=== PATIENT | female | born 1955 | race American Indian/Alaskan Native ===

== ENCOUNTER 2018-05-17 17:08 | Inpatient (IN) | payer MEDICARE, OTHER ==
[2018-05-17 18:34] LABS: Basophils % (Auto) 0.4 % (0.0-1.8); Eosinophils % (Auto) 0.5 % (0.0-4.3); Hematocrit 35.2 % (30.3-42.9); Hemoglobin 10.9 gm/dl (10.1-14.3); Lymphocytes # (Auto) 1.3 K/mm3 (1.2-5.4); Mean Corpuscular HGB Conc 31 % (30-34); Mean Corpuscular Volume 77 fl (79-97); Monocytes # (Auto) 0.6 K/mm3 (0.0-0.8); Monocytes % (Auto) 10.7 % (0.0-7.3); Platelet Count 208 K/mm3 (140-440); Red Blood Count 4.59 M/mm3 (3.65-5.03)
[2018-05-17 18:41] LABS: Red Cell Distribution Width 20.2 % (13.2-15.2)
[2018-05-17 18:44] LABS: INR 4.14 (0.87-1.13); Partial Thromboplastin Time 44.8 Sec. (24.2-36.6)
[2018-05-17 18:49] LABS: Calcium 9.2 mg/dL (8.4-10.2)
[2018-05-17 18:51] LABS: Albumin 3.8 g/dL (3.9-5); Bilirubin,Direct 0.5 mg/dL (0-0.2)
[2018-05-17] MEDS ORDERED: LASIX IV ONE ×2 (18:53→20:21)
--- NOTE | 2018-05-17 19:06 | Emergency Department Report ---
ED General Adult HPI - General Chief complaint: Chest Pain Stated complaint: CHEST PAIN Time Seen by Provider: 05/17/18 17:44 Source: patient, EMS Mode of arrival: Stretcher Limitations: No Limitations - History of Present Illness Initial comments: Patient presents to the emergency department a chief complaint of increased shortness of breath over the last 2 days. The patient states she normally wears oxygen daily but left her oxygen tank at home and the [place] area. Patient also has congestive heart failure 2 slices daily. Patient denies any chest pain, abdominal pain, headache. -: Gradual Severity scale (0 -10): 0 Consistency: constant Improves with: none Worsens with: none Associated Symptoms: denies other symptoms Treatments Prior to Arrival: none - Related Data Home Medications Medication Instructions Recorded Confirmed Last Taken Allopurinol 300 mg PO AC 05/17/18 05/17/18 Unknown Aripiprazole 20 mg PO DAILY 05/17/18 05/17/18 Unknown AtorvaSTATin 80 mg PO DAILY 05/17/18 05/17/18 Unknown Carvedilol 25 mg PO BID 05/17/18 05/17/18 Unknown Digoxin 0.25 mg PO DAILY 05/17/18 05/17/18 Unknown Doxepin 10 mg PO DAILY 05/17/18 05/17/18 Unknown Furosemide 40 mg PO DAILY 05/17/18 05/17/18 Unknown Omeprazole 20 mg PO AC 05/17/18 05/17/18 Unknown Sacubitril/Valsartan 24 mg PO BID 05/17/18 05/17/18 Unknown Sertraline 100 mg PO DAILY 05/17/18 05/17/18 Unknown Warfarin 5 mg PO DAILY 05/17/18 05/17/18 Unknown dilTIAZem 240 mg PO DAILY 05/17/18 05/17/18 Unknown Allergies Allergy/AdvReac Type Severity Reaction Status Date / Time Sulfa (Sulfonamide Allergy Unknown Verified 05/17/18 17:32 Antibiotics) ED Review of Systems ROS: Stated complaint: CHEST PAIN Other details as noted in HPI Comment: All other systems reviewed and negative Constitutional: denies: chills, fever Eyes: denies: eye pain, eye discharge, vision change ENT: denies: ear pain, throat pain Respiratory: shortness of breath. denies: cough, wheezing Cardiovascular: denies: chest pain, palpitations Endocrine: no symptoms reported Gastrointestinal: denies: abdominal pain, nausea, diarrhea Genitourinary: denies: urgency, dysuria, discharge Musculoskeletal: denies: back pain, joint swelling, arthralgia Skin: denies: rash, lesions Neurological: denies: headache, weakness, paresthesias Psychiatric: denies: anxiety, depression Hematological/Lymphatic: denies: easy bleeding, easy bruising ED Past Medical Hx - Past Medical History Previous Medical History?: Yes Hx Hypertension: Yes Hx Heart Attack/AMI: Yes Hx Congestive Heart Failure: Yes Additional medical history: A Fib - Surgical History Past Surgical History?: Yes Additional Surgical History: Cardiac stents - Social History Smoking Status: Never Smoker Substance Use Type: None - Medications Home Medications: Home Medications Medication Instructions Recorded Confirmed Last Taken Type Allopurinol 300 mg PO AC 05/17/18 05/17/18 Unknown History Aripiprazole 20 mg PO DAILY 05/17/18 05/17/18 Unknown History AtorvaSTATin 80 mg PO DAILY 05/17/18 05/17/18 Unknown History Carvedilol 25 mg PO BID 05/17/18 05/17/18 Unknown History Digoxin 0.25 mg PO DAILY 05/17/18 05/17/18 Unknown History Doxepin 10 mg PO DAILY 05/17/18 05/17/18 Unknown History Furosemide 40 mg PO DAILY 05/17/18 05/17/18 Unknown History Omeprazole 20 mg PO AC 05/17/18 05/17/18 Unknown History Sacubitril/Valsartan 24 mg PO BID 05/17/18 05/17/18 Unknown History Sertraline 100 mg PO DAILY 05/17/18 05/17/18 Unknown History Warfarin 5 mg PO DAILY 05/17/18 05/17/18 Unknown History dilTIAZem 240 mg PO DAILY 05/17/18 05/17/18 Unknown History ED Physical Exam - General Limitations: No Limitations General appearance: alert, in no apparent distress - Head Head exam: Present: atraumatic, normocephalic - Eye Eye exam: Present: normal appearance, PERRL, EOMI - ENT ENT exam: Present: mucous membranes moist - Neck Neck exam: Present: normal inspection - Respiratory Respiratory exam: Present: normal lung sounds bilaterally, rales. Absent: respiratory distress, wheezes - Cardiovascular Cardiovascular Exam: Present: regular rate, normal rhythm. Absent: systolic murmur, diastolic murmur, rubs, gallop - GI/Abdominal GI/Abdominal exam: Present: soft, normal bowel sounds. Absent: distended, tenderness - Extremities Exam Extremities exam: Present: normal inspection, pedal edema, other (bilateral pitting edema) - Back Exam Back exam: Present: normal inspection - Neurological Exam Neurological exam: Present: alert, oriented X3, CN II-XII intact. Absent: motor sensory deficit - Psychiatric Psychiatric exam: Present: normal affect, normal mood - Skin Skin exam: Present: warm, dry, intact, normal color. Absent: rash ED Course Vital Signs 05/17/18 17:29 Temperature 97.2 F L Pulse Rate 94 H Respiratory 24 Rate Blood Pressure 171/106 O2 Sat by Pulse 100 Oximetry ED Medical Decision Making - Lab Data Result diagrams: 05/17/18 17:50 05/17/18 17:50 Lab Results 05/17/18 05/17/18 05/17/18 Range/Units 17:50 17:50 17:50 WBC 5.8 (4.5-11.0) K/mm3 RBC 4.59 (3.65-5.03) M/mm3 Hgb 10.9 (10.1-14.3) gm/dl Hct 35.2 (30.3-42.9) % MCV 77 L (79-97) fl MCH 24 L (28-32) pg MCHC 31 (30-34) % RDW 20.2 H (13.2-15.2) % Plt Count 208 (140-440) K/mm3 Lymph % (Auto) 23.0 (13.4-35.0) % [place] % (Auto) 10.7 H (0.0-7.3) % Eos % (Auto) 0.5 (0.0-4.3) % Baso % (Auto) 0.4 (0.0-1.8) % Lymph # 1.3 (1.2-5.4) K/mm3 [place] # 0.6 (0.0-0.8) K/mm3 Eos # 0.0 (0.0-0.4) K/mm3 Baso # 0.0 (0.0-0.1) K/mm3 Seg Neutrophils % 65.4 (40.0-70.0) % Seg Neutrophils # 3.8 (1.8-7.7) K/mm3 PT 43.0 H (12.2-14.9) Sec. INR 4.14 H (0.87-1.13) APTT 44.8 H (24.2-36.6) Sec. Sodium 140 (137-145) mmol/L Potassium 4.8 (3.6-5.0) mmol/L Chloride 98.2 (98-107) mmol/L Carbon Dioxide 28 (22-30) mmol/L Anion Gap 19 mmol/L BUN 32 H (7-17) mg/dL Creatinine 1.7 H (0.7-1.2) mg/dL Estimated GFR 37 ml/min BUN/Creatinine Ratio 19 % Glucose 118 H (65-100) mg/dL Calcium 9.2 (8.4-10.2) mg/dL Phosphorus (2.5-4.5) mg/dL Magnesium (1.7-2.3) mg/dL Total Bilirubin (0.1-1.2) mg/dL Direct Bilirubin (0-0.2) mg/dL Indirect Bilirubin mg/dL AST (5-40) units/L ALT (7-56) units/L Alkaline Phosphatase (35-129) units/L Troponin T 0.026 (0.00-0.029) ng/mL NT-Pro-B Natriuret Pep (0-900) pg/mL Total Protein (6.3-8.2) g/dL Albumin (3.9-5) g/dL Albumin/Globulin Ratio % // Range/Units 17:52 WBC (4.5-11.0) K/mm3 RBC (3.65-5.03) M/mm3 Hgb (10.1-14.3) gm/dl Hct (30.3-42.9) % MCV (79-97) fl MCH (28-32) pg MCHC (30-34) % RDW (13.2-15.2) % Plt Count (140-440) K/mm3 Lymph % (Auto) (13.4-35.0) % [place] % (Auto) (0.0-7.3) % Eos % (Auto) (0.0-4.3) % Baso % (Auto) (0.0-1.8) % Lymph # (1.2-5.4) K/mm3 [place] # (0.0-0.8) K/mm3 Eos # (0.0-0.4) K/mm3 Baso # (0.0-0.1) K/mm3 Seg Neutrophils % (40.0-70.0) % Seg Neutrophils # (1.8-7.7) K/mm3 PT (12.2-14.9) Sec. INR (0.87-1.13) APTT (24.2-36.6) Sec. Sodium (137-145) mmol/L Potassium (3.6-5.0) mmol/L Chloride (98-107) mmol/L Carbon Dioxide (22-30) mmol/L Anion Gap mmol/L BUN (7-17) mg/dL Creatinine (0.7-1.2) mg/dL Estimated GFR ml/min BUN/Creatinine Ratio % Glucose (65-100) mg/dL Calcium (8.4-10.2) mg/dL Phosphorus 4.10 (2.5-4.5) mg/dL Magnesium 1.80 (1.7-2.3) mg/dL Total Bilirubin 1.00 (0.1-1.2) mg/dL Direct Bilirubin 0.5 H (0-0.2) mg/dL Indirect Bilirubin 0.5 mg/dL AST 21 (5-40) units/L ALT 20 (7-56) units/L Alkaline Phosphatase 194 H (35-129) units/L Troponin T (0.00-0.029) ng/mL NT-Pro-B Natriuret Pep 25859 H (0-900) pg/mL Total Protein 7.0 (6.3-8.2) g/dL Albumin 3.8 L (3.9-5) g/dL Albumin/Globulin Ratio 1.2 % - EKG Data -: EKG Interpreted by Me Rate: tachycardia (patient has a regular hyperemesis minute and the rhythm is atrial fib) - Radiology Data Radiology results: report reviewed - Medical Decision Making Discussed results with the patient Patient received IV Lasix Critical Care Time: Yes Critical care time in (mins) excluding proc time.: 45 Critical care attestation.: If time is entered above; I have spent that time in minutes in the direct care of this critically ill patient, excluding procedure time. ED Disposition Clinical Impression: CHF (congestive heart failure) Disposition: DC-09 OP ADMIT IP TO THIS HOSP Is pt being admited?: No Does the pt Need Aspirin: No Condition: Fair Referrals: PRIMARY CARE, [Primary Care Provider] - 3-5 Days
--- NOTE | 2018-05-17 19:42 | History and Physical Report ---
History of Present Illness Chief complaint: I cant breathe History of present illness: 62 YO Female with MO, Chronic Respiratory Failure on Home oxygen, Atrial Fib on Therapeutic Anticoagulation, HTN, RI, CHF, CAD S/P Stent placement presents to ED for evaluation. Pt states that she has experienced shortness of breath over the past 2 days, with progressively worsening symptoms over the same time frame. Pt acknowledges lower extremity edema, decreased exercise tolerance, Orthopnea/PND, shortness of breath, dypsnea on exertion, dypsnea at rest. EMS notified, and upon arrival the patient was found to be in distress. Pt transported to [facility] for further care and evaluation. Pt seen and evaluated in ED and found to have CHF Decompensation, as well as Acute on Chronic Respiratory Failure, and Supratherapeutic INR. Pt admitted to telemetry and initiated on CHF protocol. Cardiology consulted in ED. Pt denies, fever, chills, CP, Palpitations, NVD, Trauma, BRBPR, Unintentional weight loss, night sweats. Past History Past Medical History: acute RI, atrial fib, CAD, heart failure, hypertension, other (gout) Past Surgical History: Other (Cardiac Stent placement) Social history: single Family history: hypertension Medications and Allergies Allergies Allergy/AdvReac Type Severity Reaction Status Date / Time Sulfa (Sulfonamide Allergy Unknown Verified 05/17/18 17:32 Antibiotics) Home Medications Medication Instructions Recorded Confirmed Last Taken Type Allopurinol 300 mg PO AC 05/17/18 05/17/18 Unknown History Aripiprazole 20 mg PO DAILY 05/17/18 05/17/18 Unknown History AtorvaSTATin 80 mg PO DAILY 05/17/18 05/17/18 Unknown History Carvedilol 25 mg PO BID 05/17/18 05/17/18 Unknown History Digoxin 0.25 mg PO DAILY 05/17/18 05/17/18 Unknown History Doxepin 10 mg PO DAILY 05/17/18 05/17/18 Unknown History Furosemide 40 mg PO DAILY 05/17/18 05/17/18 Unknown History Omeprazole 20 mg PO AC 05/17/18 05/17/18 Unknown History Sacubitril/Valsartan 24 mg PO BID 05/17/18 05/17/18 Unknown History Sertraline 100 mg PO DAILY 05/17/18 05/17/18 Unknown History Warfarin 5 mg PO DAILY 05/17/18 05/17/18 Unknown History dilTIAZem 240 mg PO DAILY 05/17/18 05/17/18 Unknown History Review of Systems Constitutional: no weight loss, no weight gain, no fever, no chills Ears, nose, mouth and throat: no ear pain, no ear discharge, no tinnitis, no decreased hearing, no nose pain Breasts: no change in shape, no swelling, no mass Cardiovascular: orthopnea, shortness of breath, dyspnea on exertion, paroxysmal nocturnal dyspnea, high blood pressure, leg edema, decreased exercise tolerance, no chest pain, no palpitations, no rapid/irregular heart beat Respiratory: no cough, no cough with sputum, no excessive sputum, no hemoptysis Gastrointestinal: no abdominal pain, no nausea, no vomiting, no diarrhea, no constipation Genitourinary Female: no pelvic pain, no flank pain, no menorrhagia, no dysuria, no urinary frequency, no urgency Rectal: no pain, no incontinence, no bleeding Musculoskeletal: no neck stiffness, no neck pain, no shooting arm pain, no arm numbness/tingling, no low back pain Integumentary: no rash, no pruritis, no redness, no sores, no wounds Psychiatric: no anxiety, no memory loss, no change in sleep habits, no sleep disturbances, no insomnia, no hypersomnia Endocrine: no cold intolerance, no excessive thirst, no polydipsia, no polyuria Hematologic/Lymphatic: no easy bruising, no easy bleeding, no lymphadenopathy, no lymphedema Allergic/Immunologic: no urticaria, no allergic rhinitis, no wheezing, no persistent infections, no angioedema Exam - Constitutional Vitals: Temp Pulse Resp BP Pulse Ox 97.2 F L 94 H 24 171/106 100 05/17/18 17:29 05/17/18 17:29 05/17/18 17:29 05/17/18 17:29 05/17/18 17:29 General appearance: Present: mild distress, obese - EENT Eyes: Present: PERRL ENT: hearing intact, clear oral mucosa - Neck Neck: Present: supple, normal ROM - Respiratory Respiratory effort: normal Respiratory: bilateral: diminished, rhonchi - Cardiovascular Heart Sounds: Present: S1 & S2. Absent: rub, click - Extremities Extremities: pulses symmetrical Extremity abnormal: edema Peripheral Pulses: within normal limits - Abdominal General gastrointestinal: Present: soft, non-tender, non-distended, normal bowel sounds Female genitourinary: Present: normal - Integumentary Integumentary: Present: clear, warm, dry - Musculoskeletal Musculoskeletal: generalized weakness - Psychiatric Psychiatric: appropriate mood/affect, intact judgment & insight - Neurologic Neurologic: CNII-XII intact, moves all extremities Results - Labs CBC & Chem 7: 05/17/18 17:50 05/17/18 17:50 Labs: Abnormal lab results 05/17/18 05/17/18 05/17/18 Range/Units 17:50 17:50 17:50 MCV 77 L (79-97) fl MCH 24 L (28-32) pg RDW 20.2 H (13.2-15.2) % [place] % (Auto) 10.7 H (0.0-7.3) % PT 43.0 H (12.2-14.9) Sec. INR 4.14 H (0.87-1.13) APTT 44.8 H (24.2-36.6) Sec. BUN 32 H (7-17) mg/dL Creatinine 1.7 H (0.7-1.2) mg/dL Glucose 118 H (65-100) mg/dL Direct Bilirubin (0-0.2) mg/dL Alkaline Phosphatase (35-129) units/L NT-Pro-B Natriuret Pep (0-900) pg/mL Albumin (3.9-5) g/dL 05/17/18 Range/Units 17:52 MCV (79-97) fl MCH (28-32) pg RDW (13.2-15.2) % [place] % (Auto) (0.0-7.3) % PT (12.2-14.9) Sec. INR (0.87-1.13) APTT (24.2-36.6) Sec. BUN (7-17) mg/dL Creatinine (0.7-1.2) mg/dL Glucose (65-100) mg/dL Direct Bilirubin 0.5 H (0-0.2) mg/dL Alkaline Phosphatase 194 H (35-129) units/L NT-Pro-B Natriuret Pep 77013 H (0-900) pg/mL Albumin 3.8 L (3.9-5) g/dL Assessment and Plan - Patient Problems (1) CHF (congestive heart failure) Current Visit: Yes Status: Acute Qualifiers: Heart failure type: systolic Heart failure chronicity: acute Qualified Code(s): I50.21 - Acute systolic (congestive) heart failure Plan to address problem: Admit to telemetry, Cardiology consulted in ED, Echo, strict I/o daily weight, monitor uop q shift, thyroid panel, BNP, chest x ray, bmp, (2) Respiratory failure Current Visit: Yes Status: Acute Qualifiers: Chronicity: acute on chronic Respiratory failure complication: hypoxia Qualified Code(s): J96.21 - Acute and chronic respiratory failure with hypoxia Plan to address problem: supplemental oxygen, nebulizer therpay, NIPPV as clinically indicated, pulse oximetry, chest x ray, (3) Obesity hypoventilation syndrome Current Visit: Yes Status: Acute Plan to address problem: supplemental oxygen, NIPPV as clinically indicated, pulse oximetry, pulmonary toilet, early ambulation, OOB to chair BID, balanced diet, increased physical activity at discharge. (4) ARF (acute renal failure) with tubular necrosis Current Visit: Yes Status: Acute Plan to address problem: monitor uop q shift, repeat bmp to monitor serum creatnine. (5) Supratherapeutic INR Current Visit: Yes Status: Acute Plan to address problem: Hold coumadin, repeat INR in AM. (6) DVT prophylaxis Current Visit: Yes Status: Acute Plan to address problem: SCD to BLE while in bed.
[2018-05-17] MEDS ORDERED: TYLENOL PO PRN (19:44)
[2018-05-17] MEDS ORDERED: ZOFRAN IV PRN (19:44)
[2018-05-17] MEDS ORDERED: PROVENTIL IH PRN (19:44)
[2018-05-17] MEDS ORDERED: SODIUM CHLORIDE FLUSH SYRINGE 10 ML IV PRN (19:44)
[2018-05-17] MEDS ORDERED: HYDROMET PO PRN (21:08)
--- NOTE | 2018-05-17 21:41 | XRay Report ---
PROCEDURE: PORTABLE CHEST TECHNIQUE: A portable AP chest radiograph was obtained at 05/18/2018 2:03 PULMONOLOGY TECHNICIAN. CPT 11047 HISTORY: Shortness of breath COMPARISONS: None. FINDINGS: Heart: The heart is enlarged. Mediastinum/Vessels: Normal. Lungs/Pleural space: Lungs are expanded. There are no acute infiltrates, effusions or pneumothoraces .. Bony thorax: No acute osseous abnormality. Life support devices: None. IMPRESSION: Cardiomegaly. The lungs are clear.. This document is electronically signed by Adithya Evans MD., May 17 2018 09:38:44 PM ET
[2018-05-17] MEDS ORDERED: NON-FORMULARY (Carvedilol 25 MG) PO SCH (22:00)
[2018-05-17] MEDS ORDERED: VALSARTAN PO SCH (22:00)
[2018-05-17] MEDS ORDERED: SACUBITRIL PO SCH (22:00)
[2018-05-17 22:10] LABS: Free T4 (Free Thyroxine) 1.59 ng/dL (0.76-1.46)
[2018-05-17] MEDS: ENTRESTO 24 - 26 MG PO SCH (22:50)
[2018-05-17] MEDS: SODIUM CHLORIDE FLUSH SYRINGE 10 ML IV SCH (22:50)
[2018-05-17] MEDS: COREG PO SCH (22:51)
[2018-05-18] MEDS ORDERED: NON-FORMULARY (Omeprazole 20 MG) PO SCH (07:30)
[2018-05-18] MEDS ORDERED: NON-FORMULARY (Allopurinol 300 MG) PO SCH (07:30)
[2018-05-18 07:47] LABS: INR 4.24 (0.87-1.13)
[2018-05-18] MEDS: PROTONIX PO SCH ×3 (08:24→18:14)
[2018-05-18] MEDS: ZYLOPRIM PO SCH ×3 (08:25→18:14)
--- NOTE | 2018-05-18 09:02 | Progress Note ---
Assessment and Plan Assessment and plan: --Acute hypoxic respiratory failure ; requiring BiPAP secondary acute congestive heart failure Anti-failure medications, oxygen titrated to O2 sats more than 90% Input and output monitoring, follow cardiology evaluation and recommendations --Acute systolic congestive heart failure; unknown ejection fraction ECHO for LVEF, Continue anti-failure medications --Acute kidney injury secondary to ATN; Creatinine levels trending down, monitor renal function, avoid nephrotoxins --History of A. fib; rate controlled today; Continue Cardizem and digoxin and beta blockers, closely monitor --Coagulopathy/supratherapeutic INR; Patient is on Coumadin for A. fib, hold Coumadin, closely monitor INR No external evidence of bleeding, pharmacy to follow --Dyslipidemia stable on lipid lowering medications --History of gout; continue allopurinol and supportive care --DVT prophylaxis; patient is already on Coumadin and supratherapeutic INR --Full CODE STATUS Closely monitor the patient and adjust management as needed Follow-up cardiology evaluation and recommendations Plan of care discussed with the patient and her nurse History Interval history: Patient seen and examined medical records reviewed patient was admitted with worsening shortness of breath Feels slightly better today Reports that she follows with the [facility], has congestive heart failure with ejection fraction of 30-35% [facility] physician recommended ICD placement Patient is alert awake oriented 3 Not in acute distress vital signs reviewed, Hospitalist Physical - Constitutional Vitals: Temp Pulse Resp BP Pulse Ox 97.7 F 73 18 147/83 95 05/18/18 07:45 05/18/18 04:02 05/18/18 07:45 05/18/18 07:45 05/18/18 04:02 General appearance: Present: no acute distress, obese (morbidly) - EENT Eyes: Present: PERRL, EOM intact - Neck Neck: Present: supple, normal ROM - Respiratory Respiratory effort: normal Respiratory: bilateral: diminished, rales, negative: rhonchi, wheezing - Cardiovascular Rhythm: regular Heart Sounds: Present: S1 & S2 - Extremities Extremities: no ischemia, No edema - Abdominal General gastrointestinal: soft, non-tender, non-distended, normal bowel sounds - Integumentary Integumentary: Present: clear, warm - Psychiatric Psychiatric: appropriate mood/affect, cooperative - Neurologic Neurologic: moves all extremities Results - Labs CBC & Chem 7: 05/17/18 17:50 05/18/18 06:30 Labs: Laboratory Last Values WBC 5.8 K/mm3 (4.5-11.0) 05/17/18 17:50 RBC 4.59 M/mm3 (3.65-5.03) 05/17/18 17:50 Hgb 10.9 gm/dl (10.1-14.3) 05/17/18 17:50 Hct 35.2 % (30.3-42.9) 05/17/18 17:50 MCV 77 fl (79-97) L 05/17/18 17:50 MCH 24 pg (28-32) L 05/17/18 17:50 MCHC 31 % (30-34) 05/17/18 17:50 RDW 20.2 % (13.2-15.2) H 05/17/18 17:50 Plt Count 208 K/mm3 (140-440) 05/17/18 17:50 Lymph % (Auto) 23.0 % (13.4-35.0) 05/17/18 17:50 [place] % (Auto) 10.7 % (0.0-7.3) H 05/17/18 17:50 Eos % (Auto) 0.5 % (0.0-4.3) 05/17/18 17:50 Baso % (Auto) 0.4 % (0.0-1.8) 05/17/18 17:50 Lymph # 1.3 K/mm3 (1.2-5.4) 05/17/18 17:50 [place] # 0.6 K/mm3 (0.0-0.8) 05/17/18 17:50 Eos # 0.0 K/mm3 (0.0-0.4) 05/17/18 17:50 Baso # 0.0 K/mm3 (0.0-0.1) 05/17/18 17:50 Seg Neutrophils % 65.4 % (40.0-70.0) 05/17/18 17:50 Seg Neutrophils # 3.8 K/mm3 (1.8-7.7) 05/17/18 17:50 PT 43.8 Sec. (12.2-14.9) H 05/18/18 06:30 INR 4.24 (0.87-1.13) H 05/18/18 06:30 APTT 44.8 Sec. (24.2-36.6) H 05/17/18 17:50 Sodium 140 mmol/L (137-145) 05/18/18 06:30 Potassium 4.7 mmol/L (3.6-5.0) 05/18/18 06:30 Chloride 97.8 mmol/L (98-107) L 05/18/18 06:30 Carbon Dioxide 27 mmol/L (22-30) 05/18/18 06:30 Anion Gap 20 mmol/L 05/18/18 06:30 BUN 32 mg/dL (7-17) H 05/18/18 06:30 Creatinine 1.5 mg/dL (0.7-1.2) H 05/18/18 06:30 Estimated GFR 43 ml/min 05/18/18 06:30 BUN/Creatinine Ratio 21 % 05/18/18 06:30 Glucose 113 mg/dL (65-100) H 05/18/18 06:30 Calcium 9.0 mg/dL (8.4-10.2) 05/18/18 06:30 Phosphorus 4.10 mg/dL (2.5-4.5) 05/17/18 17:52 Magnesium 1.80 mg/dL (1.7-2.3) 05/17/18 17:52 Total Bilirubin 1.00 mg/dL (0.1-1.2) 05/17/18 17:52 Direct Bilirubin 0.5 mg/dL (0-0.2) H 05/17/18 17:52 Indirect Bilirubin 0.5 mg/dL 05/17/18 17:52 AST 21 units/L (5-40) 05/17/18 17:52 ALT 20 units/L (7-56) 05/17/18 17:52 Alkaline Phosphatase 194 units/L (35-129) H 05/17/18 17:52 Troponin T 0.028 ng/mL (0.00-0.029) 05/17/18 23:03 NT-Pro-B Natriuret Pep 25731 pg/mL (0-900) H 05/17/18 17:52 Total Protein 7.0 g/dL (6.3-8.2) 05/17/18 17:52 Albumin 3.8 g/dL (3.9-5) L 05/17/18 17:52 Albumin/Globulin Ratio 1.2 % 05/17/18 17:52 TSH 1.820 mlU/mL (0.270-4.200) 05/17/18 17:52 Free T4 1.59 ng/dL (0.76-1.46) H 05/17/18 17:52
[2018-05-18] MEDS ORDERED: DIGOXIN 0.25 MG PO SCH (10:00)
[2018-05-18] MEDS ORDERED: DILTIAZEM 240 MG PO SCH (10:00)
[2018-05-18] MEDS ORDERED: NON-FORMULARY (Atorvastatin 80 MG) PO SCH (10:00)
[2018-05-18] MEDS ORDERED: WARFARIN 5 MG PO SCH (10:00)
[2018-05-18] MEDS ORDERED: DOXEPIN 10 MG PO SCH (10:00)
[2018-05-18] MEDS ORDERED: ARIPIPRAZOLE 20 MG PO SCH (10:00)
[2018-05-18] MEDS ORDERED: NON-FORMULARY (Sertraline 100 MG) PO SCH (10:00)
--- NOTE | 2018-05-18 11:18 | Consultation ---
History of Present Illness Consult date: 05/18/18 Consult reason: congestive heart failure History of present illness: Patient is a 62 year old woman whom is in the area visiting family. She gives a history of ischemic cardiomyopathy and coronary artery disease. She has permanent atrial fibrillation and takes warfarin for oral anticoagulation which is followed by the [facility] in [facility]. She also has chronic respiratory failure on home oxygen therapy. Patient presented with complaints of shortness of breath. She reports she ran out of oxygen in her O2 tank. In addition, patient reports she has gained 10- 12lbs over the last few weeks. Noted with lower extremity edema and shortness of breath with minimal exertion. Patient admits she takes lasix daily but not twice a day as prescribed. Initial labs shows a supra therapeutic INR of 4.14 on presentation. An ECG is atrial fibrillation, rate 106. A cardiac consultation was requested for CHF exacerbation. Past History Past Medical History: acute [place], atrial fib, CAD, heart failure, hypertension, ot her (gout) Social history: single Family history: hypertension Medications and Allergies Allergies Allergy/AdvReac Type Severity Reaction Status Date / Time Sulfa (Sulfonamide Allergy Unknown Verified 05/17/18 17:32 Antibiotics) Home Medications Medication Instructions Recorded Confirmed Last Taken Type Allopurinol 300 mg PO AC 05/17/18 05/17/18 Unknown History Aripiprazole 20 mg PO DAILY 05/17/18 05/17/18 Unknown History AtorvaSTATin 80 mg PO DAILY 05/17/18 05/17/18 Unknown History Carvedilol 25 mg PO BID 05/17/18 05/17/18 Unknown History Digoxin 0.25 mg PO DAILY 05/17/18 05/17/18 Unknown History Doxepin 10 mg PO DAILY 05/17/18 05/17/18 Unknown History Furosemide 40 mg PO DAILY 05/17/18 05/17/18 Unknown History Omeprazole 20 mg PO AC 05/17/18 05/17/18 Unknown History Sacubitril/Valsartan 24 mg PO BID 05/17/18 05/17/18 Unknown History Sertraline 100 mg PO DAILY 05/17/18 05/17/18 Unknown History Warfarin 5 mg PO DAILY 05/17/18 05/17/18 Unknown History dilTIAZem 240 mg PO DAILY 05/17/18 05/17/18 Unknown History Active Meds: Active Medications Acetaminophen (Tylenol) 650 mg PO Q4H PRN PRN Reason: Pain MILD(1-3)/Fever >100.5/PERSAUD Albuterol (Proventil) 2.5 mg IH Q4HRT PRN PRN Reason: Shortness Of Breath Allopurinol (Zyloprim) 300 mg PO AC [facility] Aripiprazole (Abilify) 20 mg PO QDAY [facility] Atorvastatin Calcium (Lipitor) 80 mg PO QDAY [facility] Carvedilol (Coreg) 25 mg PO Q12HR [facility] Last Admin: 05/17/18 22:51 Dose: 25 mg Documented by: Digoxin (Lanoxin) 0.25 mg PO QDAY [facility] Diltiazem HCl (Cardizem Cd) 240 mg PO QDAY [facility] Doxepin HCl (Sinequan) 10 mg PO QDAY [facility] Furosemide (Lasix) 40 mg IV BID@0600,1800 [facility] Hydrocodone Bit/Homatropine Methylb (Hydromet) 10 ml PO Q6H PRN PRN Reason: Cough Ondansetron HCl (Zofran) 4 mg IV Q8H PRN PRN Reason: Nausea And Vomiting Pantoprazole Sodium (Protonix) 20 mg PO AC [facility] Sertraline HCl (Zoloft) 100 mg PO QDAY [facility] Sodium Chloride (Sodium Chloride Flush Syringe 10 Ml) 10 ml IV BID [facility] Last Admin: 05/17/18 22:50 Dose: 10 ml Documented by: Sodium Chloride (Sodium Chloride Flush Syringe 10 Ml) 10 ml IV PRN PRN PRN Reason: LINE FLUSH Physical Examination Vital Signs Resp 14 05/17/18 17:20 General appearance: no acute distress, obese HEENT: Positive: PERRL Cardiac: Positive: irregularly irregular Lungs: Positive: Decreased Breath Sounds Neuro: Positive: Grossly Intact Extremities: Present: +1 Edema Results 05/17/18 17:50 05/18/18 06:30 Cardiac Enzymes 05/17/18 Range/Units 17:52 AST 21 (5-40) units/L Coagulation 05/17/18 05/18/18 Range/Units 17:50 06:30 PT 43.0 H 43.8 H (12.2-14.9) Sec. INR 4.14 H 4.24 H (0.87-1.13) APTT 44.8 H (24.2-36.6) Sec. CBC 05/17/18 Range/Units 17:50 WBC 5.8 (4.5-11.0) K/mm3 RBC 4.59 (3.65-5.03) M/mm3 Hgb 10.9 (10.1-14.3) gm/dl Hct 35.2 (30.3-42.9) % Plt Count 208 (140-440) K/mm3 Lymph # 1.3 (1.2-5.4) K/mm3 [place] # 0.6 (0.0-0.8) K/mm3 Eos # 0.0 (0.0-0.4) K/mm3 Baso # 0.0 (0.0-0.1) K/mm3 Comprehensive Metabolic Panel 05/17/18 05/17/18 05/18/18 Range/Units 17:50 17:52 06:30 Sodium 140 140 (137-145) mmol/L Potassium 4.8 4.7 (3.6-5.0) mmol/L Chloride 98.2 97.8 L (98-107) mmol/L Carbon Dioxide 28 27 (22-30) mmol/L BUN 32 H 32 H (7-17) mg/dL Creatinine 1.7 H 1.5 H (0.7-1.2) mg/dL Glucose 118 H 113 H (65-100) mg/dL Calcium 9.2 9.0 (8.4-10.2) mg/dL Direct Bilirubin 0.5 H (0-0.2) mg/dL Indirect Bilirubin 0.5 mg/dL AST 21 (5-40) units/L ALT 20 (7-56) units/L Alkaline Phosphatase 194 H (35-129) units/L Total Protein 7.0 (6.3-8.2) g/dL Albumin 3.8 L (3.9-5) g/dL Assessment and Plan Acute systolic heart failure Chronic respiratory failure on home oxygen Ischemic cardiomyopathy Hx of CAD Hx of permanent Afib on warfarin as an outpatient, currently on hold due to supra therapeutic INR
[2018-05-18] MEDS: ABILIFY PO SCH (12:46)
[2018-05-18] MEDS: CARDIZEM CD PO SCH (12:47)
[2018-05-18] MEDS: SINEquan PO SCH (12:47)
[2018-05-18] MEDS: LANOXIN PO SCH (12:47)
[2018-05-18] MEDS: COREG PO SCH ×2 (12:47→23:01)
[2018-05-18] MEDS: ENTRESTO 24 - 26 MG PO SCH ×2 (12:48→22:58)
[2018-05-18] MEDS: ZOLOFT PO SCH (12:49)
[2018-05-18] MEDS: LASIX IV SCH (18:14)
[2018-05-18] MEDS: SODIUM CHLORIDE FLUSH SYRINGE 10 ML IV SCH (23:04)
[2018-05-19] MEDS: LASIX IV SCH ×2 (05:56→17:42)
[2018-05-19 07:03] LABS: INR 4.43 (0.87-1.13)
[2018-05-19 07:17] LABS: Calcium 8.5 mg/dL (8.4-10.2)
--- NOTE | 2018-05-19 09:54 | Progress Note ---
Assessment and Plan Acute on chronic systolic heart failure Acute renal failure Chronic respiratory failure on home oxygen Ischemic cardiomyopathy Hx of CAD Hx of permanent Afib on warfarin as an outpatient, currently on hold due to supra therapeutic INR Echocardiogram this admission reports a 4 chamber dilated cardiomyopaty, EF 15% with severe pulmonary hypertension, RVSP at 60 mmHg. Recommendations: Consider nephrology evaluation for renal failure and management of diuretics. Continue medical management of systolic heart failure and permanent atrial fibrillation. Subjective Date of service: 05/19/18 Interval history: Patient reports her breathing is improving. Objective Vital Signs Temp Pulse Pulse Resp BP Pulse Ox 05/19/18 08:32 100 05/19/18 08:04 97.5 F L 52 L 16 107/63 99 05/19/18 04:01 97.7 F 57 L 16 128/78 93 05/18/18 23:00 97.7 F 54 L 20 103/75 100 05/18/18 22:00 67 96 05/18/18 21:56 98 05/18/18 19:47 97.4 F L 62 22 87/44 100 05/18/18 16:40 118/65 05/18/18 12:46 98.0 F 84 18 136/79 100 05/18/18 10:00 77 26 H 96 - Physical Examination General: No Apparent Distress HEENT: Positive: PERRL Cardiac: Positive: irregularly irregular Lungs: Positive: Decreased Breath Sounds Neuro: Positive: Grossly Intact Extremities: Present: +1 Edema - Labs and Meds Coagulation 05/19/18 Range/Units 06:27 PT 45.4 H (12.2-14.9) Sec. INR 4.43 H (0.87-1.13) Comprehensive Metabolic Panel 05/19/18 Range/Units 06:27 Sodium 139 (137-145) mmol/L Potassium 4.6 (3.6-5.0) mmol/L Chloride 98.0 (98-107) mmol/L Carbon Dioxide 29 (22-30) mmol/L BUN 36 H (7-17) mg/dL Creatinine 1.7 H (0.7-1.2) mg/dL Glucose 124 H (65-100) mg/dL Calcium 8.5 (8.4-10.2) mg/dL
[2018-05-19] MEDS: ABILIFY PO SCH (10:44)
[2018-05-19] MEDS: ZYLOPRIM PO SCH ×3 (10:44→17:42)
[2018-05-19] MEDS: SODIUM CHLORIDE FLUSH SYRINGE 10 ML IV SCH ×2 (10:45→21:50)
[2018-05-19] MEDS: SINEquan PO SCH (10:46)
[2018-05-19] MEDS: ZOLOFT PO SCH (10:46)
[2018-05-19] MEDS: PROTONIX PO SCH ×3 (10:46→17:42)
[2018-05-19] MEDS: LANOXIN PO SCH (10:47)
[2018-05-19] MEDS: ENTRESTO 24 - 26 MG PO SCH ×2 (10:47→21:49)
[2018-05-19] MEDS: CARDIZEM CD PO SCH (10:47)
[2018-05-19] MEDS: COREG PO SCH ×2 (10:47→21:49)
--- NOTE | 2018-05-19 11:26 | Progress Note ---
Assessment and Plan Assessment and plan: --Acute hypoxic respiratory failure ; requiring BiPAP secondary acute congestive heart failure Anti-failure medications, oxygen titrated to O2 sats more than 90% Input and output monitoring, follow cardiology evaluation and recommendations --Acute on chronic systolic congestive heart failure; EF 15-20% Continue anti-failure medications --Dilated cardiomyopathy; EF 15-20% --Acute kidney injury secondary to ATN; worsening renal function Secondary to diuresis, closely monitor input output, avoid nephrotoxin Nephrology evaluation --History of A. fib; rate controlled today; Continue Cardizem and digoxin and beta blockers, closely monitor --Coagulopathy/supratherapeutic INR; 4.43 Hold Coumadin , target INR 2-3 --Dyslipidemia stable on lipid lowering medications --History of gout; continue allopurinol and supportive care --DVT prophylaxis; patient is already on Coumadin and supratherapeutic INR --Full CODE STATUS Closely monitor the patient and adjust management as needed Follow-up cardiology evaluation and recommendations Plan of care discussed with the patient and her nurse History Interval history: Patient seen and examined medical records reviewed No new events reported by the nursing staff Worsening renal function Alert awake oriented Vital signs reviewed Hospitalist Physical - Constitutional Vitals: Temp Pulse Resp BP Pulse Ox 97.5 F L 52 L 16 107/63 100 05/19/18 08:04 05/19/18 08:04 05/19/18 08:04 05/19/18 08:04 05/19/18 08:32 General appearance: Present: no acute distress, well-nourished, obese (morbidly) - EENT Eyes: Present: PERRL, EOM intact - Neck Neck: Present: supple, normal ROM - Respiratory Respiratory effort: normal Respiratory: bilateral: diminished, rales, negative: rhonchi, wheezing - Cardiovascular Rhythm: regular Heart Sounds: Present: S1 & S2 - Extremities Extremities: no ischemia, No edema - Abdominal General gastrointestinal: soft, non-tender, non-distended, normal bowel sounds - Integumentary Integumentary: Present: clear, warm - Psychiatric Psychiatric: appropriate mood/affect, cooperative - Neurologic Neurologic: moves all extremities Results - Labs CBC & Chem 7: 05/17/18 17:50 05/19/18 06:27 Labs: Laboratory Last Values WBC 5.8 K/mm3 (4.5-11.0) 05/17/18 17:50 RBC 4.59 M/mm3 (3.65-5.03) 05/17/18 17:50 Hgb 10.9 gm/dl (10.1-14.3) 05/17/18 17:50 Hct 35.2 % (30.3-42.9) 05/17/18 17:50 MCV 77 fl (79-97) L 05/17/18 17:50 MCH 24 pg (28-32) L 05/17/18 17:50 MCHC 31 % (30-34) 05/17/18 17:50 RDW 20.2 % (13.2-15.2) H 05/17/18 17:50 Plt Count 208 K/mm3 (140-440) 05/17/18 17:50 Lymph % (Auto) 23.0 % (13.4-35.0) 05/17/18 17:50 [place] % (Auto) 10.7 % (0.0-7.3) H 05/17/18 17:50 Eos % (Auto) 0.5 % (0.0-4.3) 05/17/18 17:50 Baso % (Auto) 0.4 % (0.0-1.8) 05/17/18 17:50 Lymph # 1.3 K/mm3 (1.2-5.4) 05/17/18 17:50 [place] # 0.6 K/mm3 (0.0-0.8) 05/17/18 17:50 Eos # 0.0 K/mm3 (0.0-0.4) 05/17/18 17:50 Baso # 0.0 K/mm3 (0.0-0.1) 05/17/18 17:50 Seg Neutrophils % 65.4 % (40.0-70.0) 05/17/18 17:50 Seg Neutrophils # 3.8 K/mm3 (1.8-7.7) 05/17/18 17:50 PT 45.4 Sec. (12.2-14.9) H 05/19/18 06:27 INR 4.43 (0.87-1.13) H 05/19/18 06:27 APTT 44.8 Sec. (24.2-36.6) H 05/17/18 17:50 Sodium 139 mmol/L (137-145) 05/19/18 06:27 Potassium 4.6 mmol/L (3.6-5.0) 05/19/18 06:27 Chloride 98.0 mmol/L (98-107) 05/19/18 06:27 Carbon Dioxide 29 mmol/L (22-30) 05/19/18 06:27 Anion Gap 17 mmol/L 05/19/18 06:27 BUN 36 mg/dL (7-17) H 05/19/18 06:27 Creatinine 1.7 mg/dL (0.7-1.2) H 05/19/18 06:27 Estimated GFR 37 ml/min 05/19/18 06:27 BUN/Creatinine Ratio 21 % 05/19/18 06:27 Glucose 124 mg/dL (65-100) H 05/19/18 06:27 Calcium 8.5 mg/dL (8.4-10.2) 05/19/18 06:27 Phosphorus 4.10 mg/dL (2.5-4.5) 05/17/18 17:52 Magnesium 1.50 mg/dL (1.7-2.3) L 05/19/18 06:27 Total Bilirubin 1.00 mg/dL (0.1-1.2) 05/17/18 17:52 Direct Bilirubin 0.5 mg/dL (0-0.2) H 05/17/18 17:52 Indirect Bilirubin 0.5 mg/dL 05/17/18 17:52 AST 21 units/L (5-40) 05/17/18 17:52 ALT 20 units/L (7-56) 05/17/18 17:52 Alkaline Phosphatase 194 units/L (35-129) H 05/17/18 17:52 Troponin T 0.028 ng/mL (0.00-0.029) 05/17/18 23:03 NT-Pro-B Natriuret Pep 40255 pg/mL (0-900) H 05/17/18 17:52 Total Protein 7.0 g/dL (6.3-8.2) 05/17/18 17:52 Albumin 3.8 g/dL (3.9-5) L 05/17/18 17:52 Albumin/Globulin Ratio 1.2 % 05/17/18 17:52 TSH 1.820 mlU/mL (0.270-4.200) 05/17/18 17:52 Free T4 1.59 ng/dL (0.76-1.46) H 05/17/18 17:52
[2018-05-19] MEDS: MAG-OX PO SCH (14:31)
--- NOTE | 2018-05-19 17:07 | Consultation ---
History of Present Illness - Reason for Consult Consult date: 05/19/18 chronic renal failure Requesting physician: DEBORAH DURAN - History of Present Illness This is a 62 yo F with past medical history of hypertension, CAD, [place], CHF, Chronic Respiratory Failure on Home oxygen, Atrial Fib on Therapeutic Anticoagulation, CKD stage 3, who presents to ED with complaints of progressively worsening shortness of breath over the past 2 days along with dyspnea on exertion, PND, orthopnea, b/l LE edema. In ER Pt was found to be in Acute on Chronic Respiratory Failure in the setting of acute CHF exacerbation, with CXR showing significant cardiomegaly and Echocardiogram showing severe global LV hypokinesis with EF 15-20%. Labs showed supratherapeutic INR and elevated BUN/Cr at 36/1.7mg/dl for which renal consult is requested. Pt denies recent NSAIDs, IV contrast exposure. states that she does no know baseline Cr however reports that she was told to have stage 3 CKD. Past History Past Medical History: acute [place], atrial fib, CAD, heart failure, hypertension, other (gout) Past Surgical History: Other (Cardiac Stent placement) Social history: single Family history: hypertension Medications and Allergies Allergies Allergy/AdvReac Type Severity Reaction Status Date / Time Sulfa (Sulfonamide Allergy Unknown Verified 05/17/18 17:32 Antibiotics) Home Medications Medication Instructions Recorded Confirmed Last Taken Type Allopurinol 300 mg PO AC 05/17/18 05/17/18 Unknown History Aripiprazole 20 mg PO DAILY 05/17/18 05/17/18 Unknown History AtorvaSTATin 80 mg PO DAILY 05/17/18 05/17/18 Unknown History Carvedilol 25 mg PO BID 05/17/18 05/17/18 Unknown History Digoxin 0.25 mg PO DAILY 05/17/18 05/17/18 Unknown History Doxepin 10 mg PO DAILY 05/17/18 05/17/18 Unknown History Furosemide 40 mg PO DAILY 05/17/18 05/17/18 Unknown History Omeprazole 20 mg PO AC 05/17/18 05/17/18 Unknown History Sacubitril/Valsartan 24 mg PO BID 05/17/18 05/17/18 Unknown History Sertraline 100 mg PO DAILY 05/17/18 05/17/18 Unknown History Warfarin 5 mg PO DAILY 05/17/18 05/17/18 Unknown History dilTIAZem 240 mg PO DAILY 05/17/18 05/17/18 Unknown History Active Meds: Active Medications Acetaminophen (Tylenol) 650 mg PO Q4H PRN PRN Reason: Pain MILD(1-3)/Fever >100.5/PERSAUD Albuterol (Proventil) 2.5 mg IH Q4HRT PRN PRN Reason: Shortness Of Breath Allopurinol (Zyloprim) [address] [facility] Last Admin: 05/19/18 14:31 Dose: 300 mg Documented by: Aripiprazole (Abilify) 20 mg PO QDAY [facility] Last Admin: 05/19/18 10:44 Dose: 20 mg Documented by: Atorvastatin Calcium (Lipitor) 80 mg PO QDAY [facility] Last Admin: 05/19/18 10:52 Dose: 80 mg Documented by: Carvedilol (Coreg) 25 mg PO Q12HR [facility] Last Admin: 05/19/18 10:47 Dose: Not Given Documented by: Digoxin (Lanoxin) 0.25 mg PO QDAY [facility] Last Admin: 05/19/18 10:47 Dose: Not Given Documented by: Diltiazem HCl (Cardizem Cd) 240 mg PO QDAY [facility] Last Admin: 05/19/18 10:47 Dose: Not Given Documented by: Doxepin HCl (Sinequan) 10 mg PO QDAY [facility] Last Admin: 05/19/18 10:46 Dose: 10 mg Documented by: Furosemide (Lasix) 40 mg IV BID@0600,1800 [facility] Last Admin: 05/19/18 05:56 Dose: 40 mg Documented by: Hydrocodone Bit/Homatropine Methylb (Hydromet) 10 ml PO Q6H PRN PRN Reason: Cough Magnesium Oxide (Mag-Ox) 400 mg PO QDAY [facility] Last Admin: 05/19/18 14:31 Dose: 400 mg Documented by: Ondansetron HCl (Zofran) 4 mg IV Q8H PRN PRN Reason: Nausea And Vomiting Pantoprazole Sodium (Protonix) [address] [facility] Last Admin: 05/19/18 14:31 Dose: 20 mg Documented by: Sertraline HCl (Zoloft) 100 mg PO QDAY [facility] Last Admin: 05/19/18 10:46 Dose: 100 mg Documented by: Sodium Chloride (Sodium Chloride Flush Syringe 10 Ml) 10 ml IV BID [facility] Last Admin: 05/19/18 10:45 Dose: 10 ml Documented by: Sodium Chloride (Sodium Chloride Flush Syringe 10 Ml) 10 ml IV PRN PRN PRN Reason: LINE FLUSH Review of Systems All systems: negative Constitutional: weakness Cardiovascular: orthopnea, edema, shortness of breath, dyspnea on exertion, paroxysmal nocturnal dyspnea Exam - Vital Signs Vital signs: Vital Signs Resp 14 05/17/18 17:20 - General Appearance General appearance: well-developed, well-nourished, appears stated age EENT: ATNC, PERRL, mucous membranes moist Neck: Present: neck supple Respiratory: Decreased Breath Sounds Heart: regular, S1S2 Gastrointestinal: Present: normoactive bowel sounds Integumentary: no rash, other (+ edema b/l LE ) Neurologic: no focal deficit, alert and oriented x3, strength 5/5, CN 3-12 intact Psychiatric: mood/affect appropriate, cooperative Results - Lab Results 05/17/18 17:50 05/19/18 06:27 Most recent lab results Calcium 8.5 mg/dL (8.4-10.2) 05/19/18 06:27 Phosphorus 4.10 mg/dL (2.5-4.5) 05/17/18 17:52 Magnesium 1.50 mg/dL (1.7-2.3) L 05/19/18 06:27 Laboratory Tests 05/17/18 05/17/18 05/17/18 17:50 17:52 17:52 PT INR Magnesium 1.80 Total Bilirubin 1.00 Direct Bilirubin 0.5 H Indirect Bilirubin 0.5 AST 21 ALT 20 Alkaline Phosphatase 194 H Troponin T 0.026 NT-Pro-B Natriuret Pep 66975 H Total Protein 7.0 Albumin 3.8 L Albumin/Globulin Ratio 1.2 TSH 1.820 Free T4 1.59 H Digoxin 05/17/18 05/19/18 05/19/18 20:12 06:27 06:27 PT 45.4 H INR 4.43 H Magnesium 1.50 L Total Bilirubin Direct Bilirubin Indirect Bilirubin AST ALT Alkaline Phosphatase Troponin T 0.028 NT-Pro-B Natriuret Pep Total Protein Albumin Albumin/Globulin Ratio TSH Free T4 Digoxin 05/19/18 12:54 PT INR Magnesium Total Bilirubin Direct Bilirubin Indirect Bilirubin AST ALT Alkaline Phosphatase Troponin T NT-Pro-B Natriuret Pep Total Protein Albumin Albumin/Globulin Ratio TSH Free T4 Digoxin 1.8 Assessment and Plan - Patient Problems (1) Acute on chronic systolic (congestive) heart failure Current Visit: Yes Status: Acute Plan to address problem: cont IV diuresis with lasix 40mg bid. respiratory status improved. Will change to po lasix once pt is euvolemic. Cont BB. hold entresto for now given borderlin e low BP. (2) Respiratory failure Current Visit: Yes Status: Acute Qualifiers: Chronicity: acute on chronic Respiratory failure complication: hypoxia Qualified Code(s): J96.21 - Acute and chronic respiratory failure with hypoxia Plan to address problem: respiratory distress improved on IV lasix. (3) Hypertensive chronic kidney disease with stage 1 through stage 4 chronic kidney disease, or unspecified chronic kidney disease Current Visit: Yes Status: Acute Plan to address problem: BP borderline low, entresto on hold. (4) Chronic kidney disease, stage III (moderate) Current Visit: Yes Status: Acute Plan to address problem: pt reports that she has underlying CKD stage 3, likely secondary to hypertensive nephrosclerosis/chronic cardiorenal syndrome. avoid nephrotoxins, NSAIDs, IV contrast. (5) Supratherapeutic INR Current Visit: Yes Status: Acute Plan to address problem: coumadin on hold. target INR 2-3
[2018-05-20] MEDS: LASIX IV SCH (05:43)
[2018-05-20 05:46] LABS: INR 3.37 (0.87-1.13)
[2018-05-20] MEDS: PROTONIX PO SCH ×3 (07:30→19:06)
--- NOTE | 2018-05-20 10:38 | Progress Note ---
Assessment and Plan Acute on chronic systolic heart failure Acute renal failure Chronic respiratory failure on home oxygen Ischemic cardiomyopathy Hx of CAD Hx of permanent Afib on warfarin as an outpatient, currently on hold due to supra therapeutic INR Echocardiogram this admission reports a 4 chamber dilated cardiomyopaty, EF 15% with severe pulmonary hypertension, RVSP at 60 mmHg. Recommendations: Continue medical management of systolic heart failure and permanent atrial fibrillation. Stable cardiac mcgrath. Subjective Date of service: 05/20/18 Interval history: Patient reports her breathing is improving. Admits she is diuresing well. Objective Vital Signs Temp Pulse Resp BP Pulse Ox 05/20/18 08:07 97.8 F 64 20 100/52 99 05/20/18 04:00 97.5 F L 71 18 90/50 94 05/20/18 00:04 97.8 F 67 18 93/49 90 05/19/18 21:42 94 05/19/18 20:34 75 05/19/18 19:18 97.9 F 64 18 91/42 90 05/19/18 16:59 97.6 F 69 18 108/54 98 05/19/18 12:01 97.8 F 54 L 18 119/69 100 - Physical Examination General: No Apparent Distress HEENT: Positive: PERRL Neck: Positive: neck supple Cardiac: Positive: irregularly irregular Lungs: Positive: Decreased Breath Sounds Neuro: Positive: Grossly Intact Extremities: Present: +1 Edema - Labs and Meds Coagulation 05/20/18 Range/Units 04:57 PT 36.5 H (12.2-14.9) Sec. INR 3.37 H (0.87-1.13)
--- NOTE | 2018-05-20 11:17 | Progress Note ---
Assessment and Plan - Patient Problems (1) Acute on chronic systolic (congestive) heart failure Current Visit: Yes Status: Acute Plan to address problem: respiratory and volume status improved. Lasix was changed to po. Cont BB. hold entresto for now given borderline low BP. (2) Respiratory failure Current Visit: Yes Status: Acute Qualifiers: Chronicity: acute on chronic Respiratory failure complication: hypoxia Qualified Code(s): J96.21 - Acute and chronic respiratory failure with hypoxia Plan to address problem: respiratory distress improved on IV lasix. (3) Hypertensive chronic kidney disease with stage 1 through stage 4 chronic kidney disease, or unspecified chronic kidney disease Current Visit: Yes Status: Acute Plan to address problem: BP borderline low, entresto on hold. (4) Chronic kidney disease, stage III (moderate) Current Visit: Yes Status: Acute Plan to address problem: pt reports that she has underlying CKD stage 3, likely secondary to hypertensive nephrosclerosis/chronic cardiorenal syndrome. avoid nephrotoxins, NSAIDs, IV contrast. Resume Entresto once BP is stabilized. (5) Supratherapeutic INR Current Visit: Yes Status: Acute Plan to address problem: coumadin on hold. target INR 2-3 Subjective Date of service: 05/20/18 Principal diagnosis: CHF, CKD Interval history: Patient awake, alert, reports improved SOB, denies CP, palpitations, n/v/d, dysuria. Objective - Vital Signs Vital signs: Vital Signs - 12hr 05/20/18 05/20/18 05/20/18 00:04 04:00 08:07 Temperature 97.8 F 97.5 F L 97.8 F Pulse Rate 67 71 64 Respiratory 18 18 20 Rate Blood Pressure 93/49 90/50 100/52 O2 Sat by Pulse 90 94 99 Oximetry - General Appearance General appearance: well-developed, well-nourished, appears stated age, obese EENT: ATNC, PERRL, mucous membranes moist Neck: no JVD Respiratory: Present: Decreased Breath Sounds Cardiology: regular, S1S2 Gastrointestinal: normoactive bowel sounds Integumentary: no rash, other (+ edema b/l LE ) Neurologic: no focal deficit, alert and oriented x3, strength 5/5, CN 3-12 intact Psychiatric: mood/affect appropriate, cooperative - Lab 05/17/18 17:50 05/19/18 06:27 Most recent lab results Calcium 8.5 mg/dL (8.4-10.2) 05/19/18 06:27 Phosphorus 4.10 mg/dL (2.5-4.5) 05/17/18 17:52 Magnesium 1.50 mg/dL (1.7-2.3) L 05/19/18 06:27 Medications & Allergies - Medications Allergies/Adverse Reactions: Allergies Sulfa (Sulfonamide Antibiotics) Allergy (Verified 05/17/18 17:32) Unknown Home Medications: Home Medications Medication Instructions Recorded Confirmed Last Taken Type Allopurinol 300 mg PO AC 05/17/18 05/17/18 Unknown History Aripiprazole 20 mg PO DAILY 05/17/18 05/17/18 Unknown History AtorvaSTATin 80 mg PO DAILY 05/17/18 05/17/18 Unknown History Carvedilol 25 mg PO BID 05/17/18 05/17/18 Unknown History Digoxin 0.25 mg PO DAILY 05/17/18 05/17/18 Unknown History Doxepin 10 mg PO DAILY 05/17/18 05/17/18 Unknown History Furosemide 40 mg PO DAILY 05/17/18 05/17/18 Unknown History Omeprazole 20 mg PO AC 05/17/18 05/17/18 Unknown History Sacubitril/Valsartan 24 mg PO BID 05/17/18 05/17/18 Unknown History Sertraline 100 mg PO DAILY 05/17/18 05/17/18 Unknown History Warfarin 5 mg PO DAILY 05/17/18 05/17/18 Unknown History dilTIAZem 240 mg PO DAILY 05/17/18 05/17/18 Unknown History Active Medications: Generic Name Dose Route Start Last Admin Trade Name Freq PRN Reason Stop Dose Admin Acetaminophen 650 mg 05/17/18 19:44 Tylenol PO Q4H PRN Pain MILD(1-3)/Fever >100.5/PERSAUD Albuterol 2.5 mg 05/17/18 19:44 Proventil IH Q4HRT PRN Shortness Of Breath Allopurinol 300 mg 05/18/18 07:30 05/19/18 17:42 Zyloprim PO 300 mg AC SARAH Administration Aripiprazole 20 mg 05/18/18 10:00 05/19/18 10:44 Abilify PO 20 mg QDAY SARAH Administration Atorvastatin Calcium 80 mg 05/18/18 10:00 05/19/18 10:52 Lipitor PO 80 mg QDAY SARAH Administration Carvedilol 25 mg 05/17/18 22:00 05/19/18 21:49 Coreg PO 25 mg Q12HR SARAH Administration Digoxin 0.125 mg 05/20/18 12:00 Lanoxin PO Q48H SARAH Diltiazem HCl 240 mg 05/18/18 10:00 05/19/18 10:47 Cardizem Cd PO Not Given QDAY SARAH Doxepin HCl 10 mg 05/18/18 10:00 05/19/18 10:46 Sinequan PO 10 mg QDAY SARAH Administration Furosemide 40 mg 05/20/18 18:00 Lasix PO 0600,1800 SARAH Hydrocodone Bit/Homatropine Methylb 10 ml 05/17/18 21:08 Hydromet PO Q6H PRN Cough Magnesium Oxide 400 mg 05/19/18 13:00 05/19/18 14:31 Mag-Ox PO 400 mg QDAY SARAH Administration Ondansetron HCl 4 mg 05/17/18 19:44 Zofran IV Q8H PRN Nausea And Vomiting Pantoprazole Sodium 20 mg 05/18/18 07:30 05/19/18 17:42 Protonix PO 20 mg AC SARAH Administration Sertraline HCl 100 mg 05/18/18 10:00 05/19/18 10:46 Zoloft PO 100 mg QDAY SARAH Administration Sodium Chloride 10 ml 05/17/18 22:00 05/19/18 21:50 Sodium Chloride Flush Syringe 10 Ml IV 10 ml BID SARAH Administration Sodium Chloride 10 ml 05/17/18 19:44 Sodium Chloride Flush Syringe 10 Ml IV PRN PRN LINE FLUSH
[2018-05-20] MEDS ORDERED: LANOXIN PO SCH ×2 (12:00→17:00)
[2018-05-20] MEDS: ABILIFY PO SCH (12:18)
[2018-05-20] MEDS: ZOLOFT PO SCH (12:19)
[2018-05-20] MEDS: MAG-OX PO SCH (12:19)
[2018-05-20] MEDS: SINEquan PO SCH (12:22)
[2018-05-20] MEDS: ZYLOPRIM PO SCH ×3 (12:24→18:51)
[2018-05-20] MEDS: COREG PO SCH ×2 (12:25→21:37)
[2018-05-20] MEDS: SODIUM CHLORIDE FLUSH SYRINGE 10 ML IV SCH ×2 (12:25→21:39)
[2018-05-20] MEDS: ENTRESTO 24 - 26 MG PO SCH ×2 (12:26→21:37)
[2018-05-20] MEDS: CARDIZEM CD PO SCH (12:26)
--- NOTE | 2018-05-20 13:59 | Progress Note ---
Assessment and Plan Assessment and plan: --Acute kidney injury secondary to ATN; mild improvement Secondary to diuresis, closely monitor input output, avoid nephrotoxin Nephrology evaluation --Coagulopathy/supratherapeutic INR; 4.43-3.37 Hold Coumadin , target INR 2-3 --Acute hypoxic respiratory failure ; requiring BiPAP secondary acute congestive heart failure Anti-failure medications, oxygen titrated to O2 sats more than 90% Input and output monitoring, follow cardiology evaluation and recommendations --Acute on chronic systolic congestive heart failure; EF 15-20% Continue anti-failure medications --Dilated cardiomyopathy; EF 15-20% --History of A. fib; rate controlled today; Continue Cardizem and digoxin and beta blockers, closely monitor --Dyslipidemia stable on lipid lowering medications --History of gout; continue allopurinol and supportive care --DVT prophylaxis; patient is already on Coumadin and supratherapeutic INR --Full CODE STATUS Follow INR and creatinine, if reasonable levels and if patient is stable May discharge home tomorrow Plan of care is discussed with the patient and her nurse History Interval history: Patient seen and examined medical records reviewed Patient feels slightly better no new complaints Vital signs noted Alert awake oriented 3 Morbidly obese, not in acute distress Hospitalist Physical - Constitutional Vitals: Temp Pulse Resp BP Pulse Ox 98.0 F 79 20 96/37 95 05/20/18 12:20 05/20/18 12:20 05/20/18 12:20 05/20/18 12:20 05/20/18 12:20 General appearance: Present: no acute distress, well-nourished, obese (morbidly) - EENT Eyes: Present: PERRL, EOM intact - Neck Neck: Present: supple, normal ROM - Respiratory Respiratory effort: normal Respiratory: bilateral: diminished, rales, negative: rhonchi, wheezing - Cardiovascular Rhythm: regular Heart Sounds: Present: S1 & S2 - Extremities Extremities: no ischemia, No edema - Abdominal General gastrointestinal: soft, non-tender, non-distended, normal bowel sounds - Integumentary Integumentary: Present: clear, warm - Psychiatric Psychiatric: appropriate mood/affect, cooperative - Neurologic Neurologic: CNII-XII intact, moves all extremities Results - Labs CBC & Chem 7: 05/17/18 17:50 05/20/18 13:23 Labs: Laboratory Last Values WBC 5.8 K/mm3 (4.5-11.0) 05/17/18 17:50 RBC 4.59 M/mm3 (3.65-5.03) 05/17/18 17:50 Hgb 10.9 gm/dl (10.1-14.3) 05/17/18 17:50 Hct 35.2 % (30.3-42.9) 05/17/18 17:50 MCV 77 fl (79-97) L 05/17/18 17:50 MCH 24 pg (28-32) L 05/17/18 17:50 MCHC 31 % (30-34) 05/17/18 17:50 RDW 20.2 % (13.2-15.2) H 05/17/18 17:50 Plt Count 208 K/mm3 (140-440) 05/17/18 17:50 Lymph % (Auto) 23.0 % (13.4-35.0) 05/17/18 17:50 [place] % (Auto) 10.7 % (0.0-7.3) H 05/17/18 17:50 Eos % (Auto) 0.5 % (0.0-4.3) 05/17/18 17:50 Baso % (Auto) 0.4 % (0.0-1.8) 05/17/18 17:50 Lymph # 1.3 K/mm3 (1.2-5.4) 05/17/18 17:50 [place] # 0.6 K/mm3 (0.0-0.8) 05/17/18 17:50 Eos # 0.0 K/mm3 (0.0-0.4) 05/17/18 17:50 Baso # 0.0 K/mm3 (0.0-0.1) 05/17/18 17:50 Seg Neutrophils % 65.4 % (40.0-70.0) 05/17/18 17:50 Seg Neutrophils # 3.8 K/mm3 (1.8-7.7) 05/17/18 17:50 PT 36.5 Sec. (12.2-14.9) H 05/20/18 04:57 INR 3.37 (0.87-1.13) H 05/20/18 04:57 APTT 44.8 Sec. (24.2-36.6) H 05/17/18 17:50 Sodium 139 mmol/L (137-145) 05/19/18 06:27 Potassium 4.6 mmol/L (3.6-5.0) 05/19/18 06:27 Chloride 98.0 mmol/L (98-107) 05/19/18 06:27 Carbon Dioxide 29 mmol/L (22-30) 05/19/18 06:27 Anion Gap 17 mmol/L 05/19/18 06:27 BUN 36 mg/dL (7-17) H 05/19/18 06:27 Creatinine 1.7 mg/dL (0.7-1.2) H 05/19/18 06:27 Estimated GFR 37 ml/min 05/19/18 06:27 BUN/Creatinine Ratio 21 % 05/19/18 06:27 Glucose 124 mg/dL (65-100) H 05/19/18 06:27 Calcium 8.5 mg/dL (8.4-10.2) 05/19/18 06:27 Phosphorus 4.10 mg/dL (2.5-4.5) 05/17/18 17:52 Magnesium 1.50 mg/dL (1.7-2.3) L 05/19/18 06:27 Total Bilirubin 1.00 mg/dL (0.1-1.2) 05/17/18 17:52 Direct Bilirubin 0.5 mg/dL (0-0.2) H 05/17/18 17:52 Indirect Bilirubin 0.5 mg/dL 05/17/18 17:52 AST 21 units/L (5-40) 05/17/18 17:52 ALT 20 units/L (7-56) 05/17/18 17:52 Alkaline Phosphatase 194 units/L (35-129) H 05/17/18 17:52 Troponin T 0.028 ng/mL (0.00-0.029) 05/17/18 23:03 NT-Pro-B Natriuret Pep 14839 pg/mL (0-900) H 05/17/18 17:52 Total Protein 7.0 g/dL (6.3-8.2) 05/17/18 17:52 Albumin 3.8 g/dL (3.9-5) L 05/17/18 17:52 Albumin/Globulin Ratio 1.2 % 05/17/18 17:52 TSH 1.820 mlU/mL (0.270-4.200) 05/17/18 17:52 Free T4 1.59 ng/dL (0.76-1.46) H 05/17/18 17:52 Digoxin 1.8 ng/mL (0.9-2.0) 05/19/18 12:54
[2018-05-20 14:27] LABS: Calcium 8.6 mg/dL (8.4-10.2)
[2018-05-20] MEDS: LASIX PO SCH (19:07)
[2018-05-21 00:40] LABS: Creatinine,Urine 56.9 mg/dL (0.1-20.0); Microalbumin/Creatinine Ratio 237.2 ug/mg
--- NOTE | 2018-05-21 01:15 | Progress Note ---
Assessment and Plan Acute on chronic systolic heart failure Acute renal failure Chronic respiratory failure on home oxygen Ischemic cardiomyopathy Hx of CAD Hx of permanent Afib on warfarin as an outpatient, currently on hold due to supra therapeutic INR Echocardiogram this admission reports a 4 chamber dilated cardiomyopaty, EF 15% with severe pulmonary hypertension, RVSP at 60 mmHg. Recommendations: Continue medical management of systolic heart failure and permanent atrial fibrillation. Stable cardiac mcgrath. digoxin dosing to 0.125 mg po every other day Euvolemia on exam - switched lasix to po 40 mg twice a day, which is making her void INR now 2. resume coumadin Patient will follow-up with her human resources operations coordinator in [place] within 1 week of disch arge Subjective Date of service: 05/21/18 Principal diagnosis: CHF, CKD Interval history: No acute events. Resting comfortably. No chest pain or SOB. Objective Vital Signs Temp Pulse Resp BP Pulse Ox 05/20/18 23:11 98.0 F 82 20 118/74 95 05/20/18 22:00 100 05/20/18 21:37 95 H 101/57 05/20/18 20:40 85 05/20/18 19:13 98.0 F 78 18 101/57 99 05/20/18 16:46 98.0 F 82 20 115/55 99 05/20/18 12:20 98.0 F 79 20 96/37 95 05/20/18 10:00 96 05/20/18 08:07 97.8 F 64 20 100/52 99 05/20/18 04:00 97.5 F L 71 18 90/50 94 - Physical Examination General: No Apparent Distress HEENT: Positive: PERRL Neck: Positive: neck supple Neuro: Positive: Grossly Intact Extremities: Present: +1 Edema - Labs and Meds Coagulation 05/20/18 Range/Units 04:57 PT 36.5 H (12.2-14.9) Sec. INR 3.37 H (0.87-1.13) Comprehensive Metabolic Panel 05/20/18 Range/Units 13:23 Sodium 139 (137-145) mmol/L Potassium 4.4 (3.6-5.0) mmol/L Chloride 94.7 L (98-107) mmol/L Carbon Dioxide 30 (22-30) mmol/L BUN 33 H (7-17) mg/dL Creatinine 1.6 H (0.7-1.2) mg/dL Glucose 113 H (65-100) mg/dL Calcium 8.6 (8.4-10.2) mg/dL
[2018-05-21] MEDS: LASIX PO SCH (05:59)
[2018-05-21 06:44] LABS: INR 2.04 (0.87-1.13)
[2018-05-21] MEDS: PROTONIX PO SCH ×3 (07:35→16:31)
[2018-05-21] MEDS: ENTRESTO 24 - 26 MG PO SCH (10:23)
[2018-05-21] MEDS: ABILIFY PO SCH (10:24)
[2018-05-21] MEDS: SINEquan PO SCH (10:24)
[2018-05-21] MEDS: ZYLOPRIM PO SCH ×2 (10:24→10:35)
[2018-05-21] MEDS: MAG-OX PO SCH (10:24)
[2018-05-21] MEDS: COREG PO SCH (10:24)
[2018-05-21] MEDS: ZOLOFT PO SCH (10:24)
[2018-05-21] MEDS: CARDIZEM CD PO SCH (10:25)
[2018-05-21] MEDS: SODIUM CHLORIDE FLUSH SYRINGE 10 ML IV SCH ×2 (10:26→10:32)
[2018-05-21 12:17] VITALS: BP 106/54
--- NOTE | 2018-05-21 13:32 | Progress Note ---
Assessment and Plan - Patient Problems (1) Acute renal injury Current Visit: Yes Status: Acute Plan to address problem: In the setting of acute on chronic cardiorenal syndrome. Renal function improving back to baseline. From nephrology standpoint patient is stable for DC, and would recommend that she follows up with nephrology at the OR in 2-3 weeks post discharge. (2) Acute on chronic systolic (congestive) heart failure Current Visit: Yes Status: Acute Plan to address problem: She has been transitioned to oral lasix therapy. Counseled patient on importance of low salt/fluid restrictions. (3) Chronic kidney disease, stage III (moderate) Current Visit: Yes Status: Acute Plan to address problem: She has underlying CKD in the setting of HTN and cardiorenal syndrome. Recommend that she follows up with nephrology as an outpatient at the OR. (4) Hypertensive chronic kidney disease with stage 1 through stage 4 chronic kidney disease, or unspecified chronic kidney disease Current Visit: Yes Status: Chronic Plan to address problem: Continue current antihypertensive regimen. (5) Respiratory failure Current Visit: Yes Status: Acute Qualifiers: Chronicity: acute on chronic Respiratory failure complication: hypoxia Qualified Code(s): J96.21 - Acute and chronic respiratory failure with hypoxia Plan to address problem: Overall respiratory status is stable at this time and patient is on room air with adequate O2 saturation noted. Subjective Date of service: 05/21/18 Principal diagnosis: CHF, CKD Interval history: No acute issues overnight. Plan for discharge today. Labs noted and renal function improving and her respiratory symptoms have improved. ECHO findings noted, and she has been switch back to oral diuretic regimen,. Objective - Vital Signs Vital signs: Vital Signs - 12hr 05/21/18 05/21/18 05/21/18 04:12 04:30 07:45 Temperature 98.0 F Pulse Rate 89 68 Pulse Rate [ 76 Apical] Respiratory 20 18 Rate Blood Pressure 102/50 O2 Sat by Pulse 96 96 Oximetry 05/21/18 05/21/18 08:27 12:09 Temperature 98.4 F 97.7 F Pulse Rate 89 84 Pulse Rate [ Apical] Respiratory 22 22 Rate Blood Pressure 130/72 106/54 O2 Sat by Pulse 99 99 Oximetry - General Appearance General appearance: well-developed, well-nourished, appears stated age EENT: ATNC, PERRL Neck: no JVD, no thyromegaly Respiratory: Present: Clear to Ascultation, Normal Exam Cardiology: regular, normal heart rate Gastrointestinal: normal, normoactive bowel sounds Integumentary: no rash, warm and dry Neurologic: no focal deficit, alert and oriented x3 Musculoskeletal: deferred Psychiatric: mood/affect appropriate, cooperative - Lab 05/17/18 17:50 05/20/18 13:23 Most recent lab results Calcium 8.6 mg/dL (8.4-10.2) 05/20/18 13:23 Phosphorus 4.10 mg/dL (2.5-4.5) 05/17/18 17:52 Magnesium 1.50 mg/dL (1.7-2.3) L 05/19/18 06:27 Urine Creatinine 56.9 mg/dL (0.1-20.0) H 05/20/18 22:56 Urine Sodium 110 mmol/L 05/20/18 22:56 Urine Total Protein 23 mg/dL (5-11.8) H 05/20/18 22:56 - Allied health notes Allied health notes reviewed: nursing Medications & Allergies - Medications Allergies/Adverse Reactions: Allergies Sulfa (Sulfonamide Antibiotics) Allergy (Verified 05/17/18 17:32) Unknown Home Medications: Home Medications Medication Instructions Recorded Confirmed Last Taken Type Allopurinol 300 mg PO AC 05/17/18 05/17/18 Unknown History Aripiprazole 20 mg PO DAILY 05/17/18 05/17/18 Unknown History AtorvaSTATin 80 mg PO DAILY 05/17/18 05/17/18 Unknown History Carvedilol 25 mg PO BID 05/17/18 05/17/18 Unknown History Digoxin 0.25 mg PO DAILY 05/17/18 05/17/18 Unknown History Doxepin 10 mg PO DAILY 05/17/18 05/17/18 Unknown History Furosemide 40 mg PO DAILY 05/17/18 05/17/18 Unknown History Omeprazole 20 mg PO AC 05/17/18 05/17/18 Unknown History Sacubitril/Valsartan 24 mg PO BID 05/17/18 05/17/18 Unknown History Sertraline 100 mg PO DAILY 05/17/18 05/17/18 Unknown History Warfarin 5 mg PO DAILY 05/17/18 05/17/18 Unknown History dilTIAZem 240 mg PO DAILY 05/17/18 05/17/18 Unknown History Active Medications: Generic Name Dose Route Start Last Admin Trade Name Freq PRN Reason Stop Dose Admin Acetaminophen 650 mg 05/17/18 19:44 Tylenol PO Q4H PRN Pain MILD(1-3)/Fever >100.5/PERSAUD Albuterol 2.5 mg 05/17/18 19:44 Proventil IH Q4HRT PRN Shortness Of Breath Allopurinol 300 mg 05/18/18 07:30 05/21/18 10:24 Zyloprim PO 300 mg AC SARAH Administration Aripiprazole 20 mg 05/18/18 10:00 05/21/18 10:24 Abilify PO 20 mg QDAY SARAH Administration Atorvastatin Calcium 80 mg 05/18/18 10:00 05/21/18 10:25 Lipitor PO 40 mg QDAY SARAH Administration Carvedilol 25 mg 05/17/18 22:00 05/21/18 10:24 Coreg PO 25 mg Q12HR SARAH Administration Digoxin 0.125 mg 05/20/18 17:00 05/20/18 19:06 Lanoxin PO 0.125 mg Q48H SARAH Administration Diltiazem HCl 240 mg 05/18/18 10:00 05/21/18 10:25 Cardizem Cd PO 240 mg QDAY SARAH Administration Doxepin HCl 10 mg 05/18/18 10:00 05/21/18 10:24 Sinequan PO 10 mg QDAY SARAH Administration Furosemide 40 mg 05/20/18 18:00 05/21/18 05:59 Lasix PO 40 mg 0600,1800 SARAH Administration Hydrocodone Bit/Homatropine Methylb 10 ml 05/17/18 21:08 Hydromet PO Q6H PRN Cough Magnesium Oxide 400 mg 05/19/18 13:00 05/21/18 10:24 Mag-Ox PO 400 mg QDAY SARAH Administration Ondansetron HCl 4 mg 05/17/18 19:44 Zofran IV Q8H PRN Nausea And Vomiting Pantoprazole Sodium 20 mg 05/18/18 07:30 05/20/18 19:06 Protonix PO 20 mg AC SARAH Administration Sertraline HCl 100 mg 05/18/18 10:00 05/21/18 10:24 Zoloft PO 100 mg QDAY SARAH Administration Sodium Chloride 10 ml 05/17/18 22:00 05/21/18 10:26 Sodium Chloride Flush Syringe 10 Ml IV 10 ml BID SARAH Administration Sodium Chloride 10 ml 05/17/18 19:44 05/21/18 10:26 Sodium Chloride Flush Syringe 10 Ml IV 10 ml PRN PRN Administration LINE FLUSH Warfarin Sodium 2.5 mg 05/21/18 17:00 Coumadin PO DAILY@1700 SARAH
--- NOTE | 2018-05-21 13:33 | Discharge Summary ---
Providers - Providers Date of Admission: 05/17/18 19:44 Date of discharge: 05/21/18 Attending physician: DEBORAH DURAN 05/17/18 19:44 Consult to Physician [CONS] Routine Comment: Consulting Provider: DOMINIQUE SERNA Physician Instructions: Reason For Exam: chf 05/19/18 11:17 Consult to Physician [CONS] Routine Comment: Consulting Provider: ABDULAZIZ CH Physician Instructions: Reason For Exam: CANDY Primary care physician: GRANITE FABRICATOR Hospitalization Reason for admission: worsening shortness of breath/acute hypoxic respiratory failure Condition: Fair Pertinent studies: Chest x-ray; cardiomegaly Echocardiogram; EF 15-20% Severe pulmonary hypertension Moderate to severe tricuspid regurgitation Right atrial cavity is severely dilated Hospital course: Very pleasant morbidly obese 62-year-old -Spanish female patient with significant past medical history of ischemic cardiomyopathy coronary artery disease permanent atrial fibrillation on warfarin for anticoagulation follows with the [facility] in [facility] visiting family here and was admitted through emergency room with worsening shortness of breath and acute on chronic hypoxic respiratory failure, and acute on chronic systolic congestive heart failure. Patient was admitted to the hospital symptomatically managed evaluated by cardiology medications optimized Patient had supratherapeutic INR, with no evidence of external or internal bleeding, Coumadin was held INR closely monitored today came down to therapeutic levels between 2 and 3, Coumadin dose was reduced to half to be started from night Counseling done advised to comply with medications and diet and follow-up visits patient verbalized understanding Today she is comfortable in no new complaints or concerns are stable Physical examination is unremarkable, Patient is hemodynamically and clinically stable, patient had mild acute kidney injury secondary to overdiuresis, evaluated by certified green building engineer medication stopped 7 mild improvement in creatinine levels Patient advised to follow-up private pharmacist intern by nephrology upon discharge for further evaluation and management DRG adjusted the dosages of some cardiac medications patient will balance understanding Patient is hemodynamically and clinically stable at discharge Discharge diagnosis; --Acute kidney injury secondary to ATN; mild improvement Secondary to diuresis, closely monitor input output, avoid nephrotoxin Nephrology evaluation --Coagulopathy/supratherapeutic INR; 4.43-3.37-2.04 Coumadin to resume today at half dose at 2.5 --Acute hypoxic respiratory failure ; requiring BiPAP secondary acute congestive heart failure Anti-failure medications, oxygen titrated to O2 sats more than 90% Input and output monitoring, follow cardiology evaluation and recommendations --Acute on chronic systolic congestive heart failure; EF 15-20% Continue anti-failure medications --Dilated cardiomyopathy; EF 15-20% --History of A. fib; rate controlled today; Continue Cardizem and digoxin and beta blockers, closely monitor --Dyslipidemia stable on lipid lowering medications --History of gout; continue allopurinol and supportive care --DVT prophylaxis; patient is already on Coumadin and supratherapeutic INR Patient is stable at discharge Disposition: ME-01 TO HOME OR SELFCARE Time spent for discharge: 31 min Core Measure Documentation - Palliative Care Palliative Care/ Comfort Measures: Not Applicable - Core Measures Any of the following diagnoses?: heart failure - Heart Failure Discharge Requirements ARLENE/ARB for LVSD if EF <40%: Yes Beta yumiko at discharge: Yes Exam - Constitutional Vitals: Temp Pulse Resp BP Pulse Ox 97.7 F 84 22 106/54 99 05/21/18 12:09 05/21/18 12:09 05/21/18 12:09 05/21/18 12:05/21/18 12:09 General appearance: Present: no acute distress, well-nourished - EENT Eyes: Present: PERRL, EOM intact - Neck Neck: Present: supple, normal ROM - Respiratory Respiratory effort: normal Respiratory: bilateral: diminished, negative: rales, rhonchi, wheezing - Cardiovascular Rhythm: regular Heart Sounds: Present: S1 & S2 - Extremities Extremities: no ischemia, No edema Extremity abnormal: edema Peripheral Pulses: within normal limits - Abdominal General gastrointestinal: Present: soft, non-tender, non-distended, normal bowel sounds - Integumentary Integumentary: Present: clear, warm - Psychiatric Psychiatric: appropriate mood/affect, cooperative - Neurologic Neurologic: CNII-XII intact, moves all extremities Plan Activity: advance as tolerated, fall precautions Diet: other (cardiac diet) Additional Instructions: Follow-up private pharmacist intern from out of town in [place] in 1 week. Cardiology changed dosages of these medications at discharge;. 1.Digoxin 0.125 mg daily. 2.Lasix 40 mg twice a day. 3.Coumadin 2.5 mg daily at bedtime[check INR in 2 days at PMD office]. target INR 2-3. Follow-up private nephrology from out of [facility] in one week Follow up with: PRIMARY CAREMD [Primary Care Provider] - 3-5 Days ELISHA OWEN MD [Staff Physician] - 7 Days Prescriptions: Warfarin [Coumadin] 2.5 mg PO DAILY@1700 #14 tablet Digoxin 125 mcg PO Q48H #30 tablet Furosemide [Lasix TAB] 40 mg PO 0600,1800 #30 tablet
[2018-05-21] MEDS ORDERED: COUMADIN PO SCH ×2 (17:00)
== END 2018-05-21 17:33 | disposition home or self-care (01) | DRG 682 ==
LOC: ED 17:08 → 4A 19:44
PROVIDERS: ADMIT Internal Medicine; ATTEND Internal Medicine
DX: N17.0 Acute kidney failure with tubular necrosis (principal); J96.21 Acute and chronic respiratory failure with hypoxia; I50.23 Acute on chronic systolic (congestive) heart failure; E66.2 Morbid (severe) obesity with alveolar hypoventilation; D68.9 Coagulation defect, unspecified; I42.0 Dilated cardiomyopathy; I13.0 Hypertensive heart and chronic kidney disease with heart failure and stage 1 through stage 4 chronic kidney disease, or unspecified chronic kidney disease; Z68.42 Body mass index [BMI] 45.0-49.9, adult; I27.20 Pulmonary hypertension, unspecified; I25.5 Ischemic cardiomyopathy; I25.10 Atherosclerotic heart disease of native coronary artery without angina pectoris; I48.2 Chronic atrial fibrillation; T50.2X5A Adverse effect of carbonic-anhydrase inhibitors, benzothiadiazides and other diuretics, initial encounter; E78.5 Hyperlipidemia, unspecified; M10.9 Gout, unspecified; N18.3 Chronic kidney disease, stage 3 (moderate); Z99.81 Dependence on supplemental oxygen; Z79.01 Long term (current) use of anticoagulants; Y92.89 Other specified places as the place of occurrence of the external cause; I25.2 Old myocardial infarction; Z95.5 Presence of coronary angioplasty implant and graft; Z82.49 Family history of ischemic heart disease and other diseases of the circulatory system; Z88.2 Allergy status to sulfonamides; Z79.899 Other long term (current) drug therapy
CPT/HCPCS: 36415; 71045; 80048; 80076; 80162; 82043; 83735; 83880; 84100; 84156; 84300; 84439; 84443; 84484; 85025; 85610; 85730; 87116; 93005; 93010; 93306; 94760; 96374; G0378; A9270-GY; J1940